=== PATIENT | male | born 1985 | race African-American/Black ===

== ENCOUNTER 2018-10-29 16:05 | Emergency (ER) | payer OTHER ==
[~2018-10-29] VITALS: Ht 170.2 cm; Wt 68.0 kg
[2018-10-29] MEDS ORDERED: PEN G BENZ/PEN G PROCAINE CR 1.2 MMU/2 ML IM ONE (16:45)
[2018-10-29 18:14] VITALS: BP 122/81
== END 2018-10-29 18:36 | disposition home or self-care (01) ==
LOC: ER 16:05
DX: J03.80 Acute tonsillitis due to other specified organisms (principal); B96.89 Other specified bacterial agents as the cause of diseases classified elsewhere; R05 Cough
CPT/HCPCS: 71045; 96372; 99283; J0558

== ENCOUNTER 2021-07-10 02:33 | Emergency (ER) | payer MEDICAID, OTHER ==
[~2021-07-10] VITALS: Ht 170.2 cm; Wt 70.0 kg
[2021-07-10] MEDS ORDERED: IBUP-2030 MT (03:30)
[2021-07-10] MEDS ORDERED: AMOX-424 MT (03:30)
[2021-07-10] MEDS ORDERED: KETOROLAC 60MG/2ML VIAL IM ONE (03:30)
[2021-07-10 03:39] VITALS: BP 137/89
== END 2021-07-10 03:44 | disposition home or self-care (01) ==
LOC: ER 02:33
DX: J32.9 Chronic sinusitis, unspecified (principal)
CPT/HCPCS: 96372; 99283; J1885

== ENCOUNTER 2022-01-06 09:42 | Emergency (ER) | payer MEDICAID ==
[~2022-01-06] VITALS: Ht 172.7 cm; Wt 75.0 kg
[~2022-01-06 09:42] MED LIST: AMOX-424 MT; IBUP-2030 MT
[2022-01-06 09:47] VITALS: BP 132/90
== END 2022-01-06 10:57 | disposition left against medical advice (07) ==
LOC: ER 09:42
DX: Z53.21 Procedure and treatment not carried out due to patient leaving prior to being seen by health care provider (principal)